=== PATIENT | male | born 1990 | race Caucasian/White ===

== ENCOUNTER 2021-06-14 09:15 | Emergency (ER) | payer BC ==
[~2021-06-14] VITALS: Ht 172.7 cm; Wt 77.3 kg
[2021-06-14 09:40] VITALS: BP 119/80
== END 2021-06-14 10:55 | disposition home or self-care (01) ==
LOC: ER 09:17
DX: U07.1 COVID-19 (principal); R50.9 Fever, unspecified; R05 Cough; R06.02 Shortness of breath; R07.89 Other chest pain; J45.909 Unspecified asthma, uncomplicated
CPT/HCPCS: 71045; 93005; 99283